=== PATIENT | male | born 1990 | race Caucasian/White ===

== ENCOUNTER 2019-09-25 10:35 | Emergency (ER) | payer OTHER ==
[~2019-09-25] VITALS: Ht 180.3 cm; Wt 88.5 kg
[~2019-09-25 10:35] MED LIST: ZOFRAN4 MG PO
[2019-09-25 11:54] VITALS: BP 138/82
== END 2019-09-25 11:55 | disposition home or self-care (01) ==
LOC: M.ERS 10:35
DX: L91.8 Other hypertrophic disorders of the skin (principal); Z88.1 Allergy status to other antibiotic agents; Z88.2 Allergy status to sulfonamides